=== PATIENT | female | born 1955 | race Two or more races ===

== ENCOUNTER 2025-01-09 09:04 | Emergency (ER) | payer OTHER ==
[~2025-01-09] VITALS: Ht 157.5 cm; Wt 55.8 kg
[2025-01-09] MEDS ORDERED: LIPITOR20 MG PO (09:51)
[2025-01-09] MEDS ORDERED: METHYLPREDNISOLONE ACETATE 40 MG/ML VIAL IU ONE (10:30)
[2025-01-09] MEDS ORDERED: DIPHENHYDRAMINE HCL 50 MG/ML VIAL 1ML IV ONE (10:30)
[2025-01-09] MEDS ORDERED: METHYLPREDNISOLONE SOD SUCC 40 MG VIAL ONE (11:06)
[2025-01-09] MEDS ORDERED: DIPHENHYDRAMINE HCL 12.5 MG/5 ML BLIST.PACK PO ONE (11:06)
[2025-01-09] MEDS ORDERED: DIPHENHYDRAMINE HCL 50 MG/ML VIAL 1ML ONE (11:17)
== END 2025-01-09 12:56 | disposition home or self-care (01) ==
LOC: ER 09:04
DX: T78.3XXA Angioneurotic edema, initial encounter (principal); Z88.2 Allergy status to sulfonamides; E78.49 Other hyperlipidemia
CPT/HCPCS: 96365; 99282; J1200; J3490